=== PATIENT | male | born 1935 | race Caucasian/White ===

== ENCOUNTER 2016-10-09 01:28 | Observation (INO) | payer MEDICARE, MEDICAID ==
[2016-10-09] MEDS ORDERED: Albuterol/Ipratropium 3.0-0.5 MG/3 ML Neb Soln NEB ONE (02:01)
--- NOTE | 2016-10-09 02:24 | EDM.PDOC ---
ED HISTORY OF PRESENT ILLNESS - General Chief Complaint: Respiratory Problem Stated Complaint: COUGH, WHEEZING Time Seen by Provider: 10/09/16 01:28 Source: Reports: Patient, Family History Limitations: Reports: Respiratory distress - History of Present Illness INITIAL COMMENTS - FREE TEXT/NARRATIVE: 81 years old w m with h/o COPD came to the ed with his family to the ed due to worsening of SOB. Pt's pulse ox was 89 on arrival. Pt denied h/o CHF, no chest pain, zno H/O PE. He did smoke in the past. No dizziness no lightheadedness. He denied other acute medical issues. His SOB got worse in the 2-3 days. Symptom Onset Date: 10/06/16 Symptom Onset Time: 07:00 Timing/Duration: Reports: Day(s):, Getting worse Severity: moderate Location, General: Reports: chest Quality: Reports: Same as previous episode - Related Data Allergies/ADRs: Allergies Allergy/AdvReac Type Severity Reaction Status Date / Time aspirin Allergy Rash Verified 10/09/16 02:17 fexofenadine Allergy Cannot Verified 10/09/16 02:17 Remember niacin Allergy Cannot Verified 10/09/16 02:17 Remember polyethylene glycol Allergy Nausea and Verified 10/09/16 02:17 [From Golytely] Vomiting polyethylene glycol 3350 Allergy Nausea and Verified 10/09/16 02:17 [From Golytely] Vomiting potassium chloride Allergy Nausea and Verified 10/09/16 02:17 [From Golytely] Vomiting simvastatin Allergy Cannot Verified 10/09/16 02:17 Remember sodium [From Golytely] Allergy Nausea and Verified 10/09/16 02:17 Vomiting sodium bicarbonate Allergy Nausea and Verified 10/09/16 02:17 [From Golytely] Vomiting sodium chloride Allergy Nausea and Verified 10/09/16 02:17 [From Golytely] Vomiting sodium sulfate Allergy Nausea and Verified 10/09/16 02:17 [From Golytely] Vomiting Home Meds: Home Meds Acetaminophen [Tylenol Arthritis Pain] 650 mg PO Q6H PRN 07/26/13 [History] Albuterol Sulfate [Albuterol Sulfate HFA] 18 gm IH Q6H PRN 07/26/13 [History] Flunisolide [Nasalide Nasal [place]] 2 spray FLORES BID 07/26/13 [History] Lisinopril [Prinivil] 40 mg PO DAILY 07/26/13 [History] Metoprolol Succinate [Toprol XL 100mg] 100 mg PO DAILY 07/26/13 [History] Multivitamins [Tab-A-Noelle] 1 each PO DAILY 07/26/13 [History] Omeprazole 20 mg PO DAILY 07/26/13 [History] Potassium Chloride [Potassium Chloride Solution] 20 meq PO DAILY 07/26/13 [ History] Rosuvastatin [Crestor] 20 mg PO BEDTIME 07/26/13 [History] Tamsulosin [Tamsulosin 24 Hr] 0.4 mg PO DAILY 07/26/13 [History] Warfarin [Coumadin] 2 mg PO ONETIME 11/16/15 [History] Past Medical History - Past Health History Medical/Surgical History: Denies Medical/Surgical History HEENT History: Reports: Impaired vision Cardiovascular History: Reports: High cholesterol, Hypertension Other Cardiovascular History: denies medical hx but is on metropol,lisinopril Respiratory History: Reports: Asthma Gastrointestinal History: Reports: GERD Social & Family History - Tobacco Use Smoking Status *Q: Never Smoker - Alcohol Use Days Per Week of Alcohol Use: 1 Number of Drinks Per Day: 1 Total Drinks Per Week: 1 - Recreational Drug Use Recreational Drug Use: No - Living Situation & Occupation Occupation: retired ED ROS GENERAL - Review of Systems Review Of Systems: See Below Constitutional: Reports: no symptoms HEENT: Reports: No symptoms Respiratory: Reports: Shortness of Breath Cardiovascular: Reports: No symptoms Endocrine: Reports: no symptoms GI/Abdominal: Reports: No symptoms : Reports: no symptoms Musculoskeletal: Reports: no symptoms Skin: Reports: no symptoms Neurological: Reports: No Symptoms Psychiatric: Reports: No symptoms Hematologic/Lymphatic: Reports: no symptoms ED EXAM, GENERAL - Physical Exam Exam: See Below Exam Limited By: Respiratory distress General Appearance: alert, WD/WN, moderate distress Eye Exam: bilateral eye: normal inspection Ears: normal external exam Ear Exam: bilateral ear: auricle normal Nose: normal inspection, normal mucosa, no blood Throat/Mouth: Normal inspection, Normal lips, Normal gums Head: atraumatic, normocephalic Neck: normal inspection, supple, non-tender, full range of motion Respiratory/Chest: respiratory distress, decreased breath sounds (left lung), wheezing Cardiovascular: no edema, no gallop, no JVD, irregularly irregular Peripheral Pulses: 1+: femoral (L), femoral (R) GI/Abdominal: normal bowel sounds, soft, non tender, no organomegaly, no distention, no abnormal bruit (Male) Exam: Deferred Rectal (Males) Exam: Deferred Back Exam: normal inspection, full range of motion Extremities: normal inspection, normal range of motion, non-tender, no pedal edema Neurological: alert, oriented, CN II-XII intact, normal cognition, no motor/ sensory deficits Psychiatric: normal affect, normal mood Skin Exam: Warm, Dry, Intact, Normal color, No rash Lymphatic: no adenopathy Course - Vital Signs Text/Narrative:: 81 years old w m with h/o COPD came to the ed with his family to the ed due to worsening of SOB. Pt's pulse ox was 89 on arrival. Pt denied h/o CHF, no chest pain, no H/O PE. He did smoke in the past. No dizziness no lightheadedness. He denied other acute medical issues. His SOB got worse in the 2-3 days. PE: WNWD WM in resp distress, Exp wheezes, dec BS left lung CXR: Left pleural effusion,CHF, COPD Labs: INR 3.4 (on coumadin) Impression: COPD exacerbation, Tx: [place], Solumedrol Reexam: Improved some Plan: Admit for obs Last Recorded V/S: Last Vital Signs Temp 37.2 C 10/09/16 02:28 Pulse 91 10/09/16 03:23 Resp 22 H 10/09/16 03:23 BP 132/84 10/09/16 03:23 Pulse Ox 91 L 10/09/16 03:23 - Orders/Labs/Meds Orders: Active Orders 24 hr Category Date Time Status Ambulate [RC] ASDIRECTED Care 10/09/16 03:14 Active RT Aerosol Therapy [RC] ASDIRECTED Care 10/09/16 02:01 Active Chest 2V [CR] Stat Exams 10/09/16 01:59 Taken Sodium Chloride 0.9% [Saline Flush] Med 10/09/16 02:34 Active 10 ml FLUSH ASDIRECTED PRN Saline Lock Insert [OM.PC] Routine Oth 10/09/16 02:34 Ordered Medication Orders Albuterol (Proventil Neb Soln) 2.5 mg NEB Q4H ELISE Methylprednisolone Sodium Succinate (Solu-Medrol) 125 mg IVPUSH Q8H ELISE Ondansetron HCl (Zofran) 4 mg IV Q4H PRN PRN Reason: Nausea/Vomiting Sodium Chloride (Saline Flush) 10 ml FLUSH ASDIRECTED PRN PRN Reason: Keep Vein Open Last Admin: 10/09/16 02:48 Dose: 10 ml Admin: 10/09/16 02:42 Dose: 10 ml Labs: Laboratory Tests 10/09/16 10/09/16 10/09/16 Range/Units 02:10 02:10 02:10 WBC 8.8 (4.5-12.0) X10-3/uL RBC 4.81 (4.30-5.75) x10(6)uL Hgb 14.6 (11.5-15.5) g/dL Hct 43.9 (30.0-51.3) % MCV 91.3 (80-96) fL MCH 30.3 (27.7-33.6) pg MCHC 33.2 (32.2-35.4) g/dL RDW 12.6 (11.5-15.5) % Plt Count 188 (125-369) X10(3)uL MPV 9.8 (7.4-10.4) fL Neut % (Auto) 54.4 (46-82) % Lymph % (Auto) 26.5 (13-37) % [place] % (Auto) 11.7 (4-12) % Eos % (Auto) 7 H (1.0-5.0) % Baso % (Auto) 1 (0-2) % Neut # (Auto) 4.8 (1.6-8.3) # Lymph # (Auto) 2.3 (0.6-5.0) # [place] # (Auto) 1.0 (0.0-1.3) # Eos # (Auto) 0.6 (0.0-0.8) # Baso # (Auto) 0.1 (0.0-0.2) # PT 35.2 H* (8.7-11.1) INR 3.40 H (0.89-1.13) Sodium 139 (135-145) mmol/L Potassium 4.2 (3.5-5.3) mmol/L Chloride 103 (100-110) mmol/L Carbon Dioxide 28 (23-29) mmol/L BUN 14 (8-23) mg/dL Creatinine 0.9 (0.6-1.3) mg/dL Est Cr Clr Drug Dosing 66.24 mL/min Estimated GFR (MDRD) > 60 (>60) BUN/Creatinine Ratio 15.6 (9-20) Glucose 145 H (80-116) mg/dL Calcium 8.5 L (8.6-10.2) mg/dL Troponin I (0.02-0.06) NG/ML B-Natriuretic Peptide (0-100) pg/mL 10/09/16 10/09/16 Range/Units 02:10 02:10 WBC (4.5-12.0) X10-3/uL RBC (4.30-5.75) x10(6)uL Hgb (11.5-15.5) g/dL Hct (30.0-51.3) % MCV (80-96) fL MCH (27.7-33.6) pg MCHC (32.2-35.4) g/dL RDW (11.5-15.5) % Plt Count (125-369) X10(3)uL MPV (7.4-10.4) fL Neut % (Auto) (46-82) % Lymph % (Auto) (13-37) % [place] % (Auto) (4-12) % Eos % (Auto) (1.0-5.0) % Baso % (Auto) (0-2) % Neut # (Auto) (1.6-8.3) # Lymph # (Auto) (0.6-5.0) # [place] # (Auto) (0.0-1.3) # Eos # (Auto) (0.0-0.8) # Baso # (Auto) (0.0-0.2) # PT (8.7-11.1) INR (0.89-1.13) Sodium (135-145) mmol/L Potassium (3.5-5.3) mmol/L Chloride (100-110) mmol/L Carbon Dioxide (23-29) mmol/L BUN (8-23) mg/dL Creatinine (0.6-1.3) mg/dL Est Cr Clr Drug Dosing mL/min Estimated GFR (MDRD) (>60) BUN/Creatinine Ratio (9-20) Glucose (80-116) mg/dL Calcium (8.6-10.2) mg/dL Troponin I < 0.01 L (0.02-0.06) NG/ML B-Natriuretic Peptide 5 (0-100) pg/mL Meds: Medications Generic Name Dose Route Start Last Admin Trade Name Freq PRN Reason Stop Dose Admin Albuterol 2.5 mg 10/09/16 03:45 Proventil Neb Soln NEB Q4H ELISE Methylprednisolone Sodium Succinate 125 mg 10/09/16 03:45 Solu-Medrol IVPUSH Q8H ELISE Ondansetron HCl 4 mg 10/09/16 03:31 Zofran IV Q4H PRN Nausea/Vomiting Sodium Chloride 10 ml 10/09/16 02:34 10/09/16 02:48 Saline Flush FLUSH 10 ml ASDIRECTED PRN Administration Keep Vein Open Discontinued Medications Generic Name Dose Route Start Last Admin Trade Name Freq PRN Reason Stop Dose Admin Albuterol/Ipratropium 3 ml 10/09/16 02:01 10/09/16 02:11 Duoneb 3.0-0.5 Mg/3 Ml NEB 10/09/16 02:02 3 ml ONETIME ONE Administration Methylprednisolone Sodium Succinate 125 mg 10/09/16 02:26 10/09/16 02:46 Solu-Medrol IVPUSH 10/09/16 02:27 125 mg ONETIME ONE Administration Departure - Departure Time of Disposition: 03:38 Disposition: Refer to Observation Condition: fair Clinical Impression: COPD (chronic obstructive pulmonary disease) Qualifiers: COPD type: COPD with acute exacerbation Qualified Code(s): J44.1 - Chronic obstructive pulmonary disease with (acute) exacerbation - My Orders Last 24 Hours: My Active Orders 10/09/16 01:59 Chest 2V [CR] Stat 10/09/16 02:01 RT Aerosol Therapy [RC] ASDIRECTED 10/09/16 02:34 Sodium Chloride 0.9% [Saline Flush] 10 ml FLUSH ASDIRECTED PRN Saline Lock Insert [OM.PC] Routine 10/09/16 03:14 Ambulate [RC] ASDIRECTED - Assessment/Plan Last 24 Hours: My Active Orders 10/09/16 01:59 Chest 2V [CR] Stat 10/09/16 02:01 RT Aerosol Therapy [RC] ASDIRECTED 10/09/16 02:34 Sodium Chloride 0.9% [Saline Flush] 10 ml FLUSH ASDIRECTED PRN Saline Lock Insert [OM.PC] Routine 10/09/16 03:14 Ambulate [RC] ASDIRECTED
[2016-10-09] MEDS ORDERED: methylPREDNISolone Sodium Succinate 125 MG/2 ML SDV IVPUSH ONE (02:26)
[2016-10-09] MEDS: Sodium Chloride 0.9% 10 ML Syringe FLUSH PRN ×2 (02:42→02:48)
[2016-10-09] MEDS ORDERED: Ondansetron 4 MG/2 ML SDV IV PRN (03:31)
[2016-10-09] MEDS ORDERED: methylPREDNISolone Sodium Succinate 125 MG/2 ML SDV IVPUSH SCH (03:45)
[2016-10-09] MEDS: Albuterol 0.083% 2.5 MG/3 ML Neb Soln NEB SCH ×4 (03:52→15:15)
[2016-10-09] MEDS ORDERED: Loratadine 10 MG Tab PO PRN (10:46)
[2016-10-09] MEDS ORDERED: Acetaminophen 650 MG Tab.ER PO PRN (10:46)
[2016-10-09] MEDS ORDERED: Loperamide 2 MG Cap *PTOM PO PRN (10:46)
[2016-10-09] MEDS ORDERED: Metoprolol Succinate 100 MG Tab.ER PO SCH (11:00)
[2016-10-09] MEDS ORDERED: Potassium Chloride 10 MEQ Tab.ER PO SCH (11:00)
[2016-10-09] MEDS ORDERED: LISINOPRIL 10 MG PO SCH (11:00)
[2016-10-09] MEDS ORDERED: Albuterol 0.083% 2.5 MG/3 ML Neb Soln NEB PRN (16:06)
[2016-10-09] MEDS ORDERED: METOPROLOL SUCCINATE 50 MG PO ONE (16:09)
--- NOTE | 2016-10-09 16:12 | PCM.HP ---
H&P History of Present Illness - General Admit Problem/Dx: Admission Diagnosis/Problem Admission Diagnosis/Problem COPD, Moderate chronic obstructive pulmonary disease Source of Information: Patient - History of Present Illness Initial Comments - Free Text/Narative: 81 years old male with h/o COPD was seen in the ed with his family due to worsening of SOB. Pt's pulse ox was 89 on arrival. Pt denied h/o CHF, no chest pain, no H/O PE. He did smoke in the past. No dizziness no lightheadedness. He denied other acute medical issues. His SOB got worse in the 2-3 days. getting over the same thing. no hx of home oxygen use. otherwise no fevers or chills. appetite has been down. no diarrhea, melena or hematuria. no nausea or vomiting. coughing but now sputum. no cp or pressure. no hemoptosis. no headache , neckpain, night sweats, travel, joint swelling or redness, abd pain, flank pain, wound or rash. Denies Pain Score (Numeric/FACES): 0 - Related Data Allergies/Adverse Reactions: Allergies Allergy/AdvReac Type Severity Reaction Status Date / Time aspirin Allergy Swelling Verified 10/09/16 04:04 fexofenadine Allergy Confusion Verified 10/09/16 04:04 niacin Allergy Rash Verified 10/09/16 04:04 polyethylene glycol Allergy Nausea and Verified 10/09/16 02:17 [From Golytely] Vomiting polyethylene glycol 3350 Allergy Nausea and Verified 10/09/16 02:17 [From Golytely] Vomiting potassium chloride Allergy Nausea and Verified 10/09/16 02:17 [From Golytely] Vomiting simvastatin Allergy Joint Pain Verified 10/09/16 04:04 sodium [From Golytely] Allergy Nausea and Verified 10/09/16 02:17 Vomiting sodium bicarbonate Allergy Nausea and Verified 10/09/16 02:17 [From Golytely] Vomiting sodium chloride Allergy Nausea and Verified 10/09/16 02:17 [From Golytely] Vomiting sodium sulfate Allergy Nausea and Verified 10/09/16 02:17 [From Golytely] Vomiting Home Medications: Home Meds Acetaminophen [Tylenol Arthritis Pain] 325 mg PO Q6H PRN 07/26/13 [History] Rosuvastatin [Crestor] 20 mg PO BEDTIME 07/26/13 [History] Tamsulosin [Flomax] 0.4 mg PO DAILY 07/26/13 [History] Warfarin [Coumadin] 4 mg PO MOWEFR 11/16/15 [History] Albuterol [Ventolin HFA] 2 puff INH Q6HR PRN 10/09/16 [History] Diphenhydramine Hcl [IJD: diphenhydrAMINE HCl] 25 mg PO DAILY 10/09/16 [History] Loperamide [Imodium] 2 mg PO Q4H PRN 10/09/16 [History] Potassium Chloride [Klor-Con 10] 20 meq PO BID 10/09/16 [History] Ranitidine HCl [Ranitidine] 150 mg PO BID 10/09/16 [History] Warfarin [Coumadin] 2 mg PO SUTUTHSA 10/09/16 [History] Albuterol [IJD: Albuterol] 2.5 mg NEB Q4H PRN #0 nebule 10/10/16 [Rx] Albuterol/Ipratropium [DuoNeb 3.0-0.5 MG/3 ML] 3 ml NEB TIDRT neb 10/10/16 [Rx] LORazepam [Ativan] 0.5 mg PO Q8H PRN #0 tablet 10/10/16 [Rx] Lisinopril [Prinivil] 5 mg PO DAILY tablet 10/10/16 [Rx] Metoprolol Succinate [Toprol XL] 25 mg PO DAILY tab.er 10/10/16 [Rx] Multivitamins [Tab-A-Noelle] 1 tab PO DAILY #0 tablet 10/10/16 [Rx] Prednisone [IJD: predniSONE] 40 mg PO BID tablet 10/10/16 [Rx] Past Medical History - Past Health History Medical/Surgical History: Denies Medical/Surgical History HEENT History: Reports: Impaired Vision Cardiovascular History: Reports: High Cholesterol, Hypertension Other Cardiovascular History: denies medical hx but is on metropol,lisinopril Respiratory History: Reports: Asthma Gastrointestinal History: Reports: GERD Social & Family History - Tobacco Use Smoking Status *Q: Former Smoker Years of Tobacco use: 9 Packs/Tins Daily: 1 Used Tobacco, but Quit: Yes Month Tobacco Last Used: JUL. Second Hand Smoke Exposure: No - Caffeine Use Caffeine Use: Reports: Soda Other Caffeine Use: COKE - Alcohol Use Days Per Week of Alcohol Use: 1 Number of Drinks Per Day: 0 Total Drinks Per Week: 0 Date of Last Drink: 07/03/00 Time of Last Drink: 21:00 - Recreational Drug Use Recreational Drug Use: No - Living Situation & Occupation Living situation: Reports: Occupation: Retired H&P Review of Systems - Review of Systems: Review Of Systems: ROS reveals no pertinent complaints other than HPI. Exam - Exam Exam: See Below - Vital Signs Vital Signs: Last Vital Signs Temp 98.5 F 10/09/16 12:00 Pulse 103 H 10/09/16 15:17 Resp 18 10/09/16 12:00 BP 120/70 10/09/16 12:00 Pulse Ox 90 L 10/09/16 15:17 Weight: 90.401 kg - Exam Quality Assessment: Supplemental Oxygen General: Alert, Oriented, Cooperative HEENT: Conjunctiva Clear, Posterior Pharynx Clear. No: Scleral Icterus Neck: Supple, Trachea Midline. No: Lymphadenopathy Lungs: Normal Respiratory Effort, Crackles, Rales, Wheezing (throughout) Cardiovascular: Regular Rhythm, Tachycardia Abdomen: Normal Bowel Sounds, Soft Back Exam: Normal Inspection Extremities: Normal Inspection Skin: No: Rash, [place] Neurological: Strength Equal Bilateral, Normal Speech Psychiatric: Normal Affect, Normal Mood - Patient Data Result Diagrams: 10/09/16 02:10 10/10/16 06:40 Imaging Impressions last 24 hrs: cxr with diffuse scattered pneumonitis and air bronchograms. no masses or effusion. not able to appreciate any focal consolidation. radiology review pending. *Q Meaningful Use (ADM) - VTE *Q VTE Criteria *Q: - Stroke *Q Stroke Criteria *Q: - AMI *Q AMI Criteria *Q: - Problem List (1) Acute exacerbation of COPD with asthma SNOMED Code(s): 230716272 ICD Code: J44.1 - CHRONIC OBSTRUCTIVE PULMONARY DISEASE W (ACUTE) EXACERBATION; J45.901 - UNSPECIFIED ASTHMA WITH (ACUTE) EXACERBATION Status: Acute (2) Respiratory distress, acute SNOMED Code(s): 521791290 ICD Code: R06.00 - DYSPNEA, UNSPECIFIED Status: Acute (3) COPD, Moderate chronic obstructive pulmonary disease SNOMED Code(s): 067858286 ICD Code: J44.9 - CHRONIC OBSTRUCTIVE PULMONARY DISEASE, UNSPECIFIED Status : Chronic Priority: High Problem List Initiated/Reviewed/Updated: Yes Orders Last 24hrs: Active Orders 24 hr Category Date Time Status Patient Status [ADT] Routine ADT 10/09/16 03:31 Active Oxygen Therapy [RC] PRN Care 10/09/16 03:31 Active RT Aerosol Therapy [RC] ASDIRECTED Care 10/09/16 16:05 Active Up With Assistance [RC] ASDIRECTED Care 10/09/16 03:31 Active Vital Signs [RC] 04,08,12,16,20,00 Care 10/09/16 03:31 Active OT Evaluation and Treatment [CONS] Routine Cons 10/09/16 10:55 Active PT Evaluation and Treatment [CONS] Routine Cons 10/09/16 10:55 Active 2 Gram Sodium Diet [DIET] Diet 10/09/16 Breakfast Active BASIC METABOLIC PANEL,BMP [CHEM] AM Lab 10/10/16 05:11 Ordered INR,PT,PROTHROMBIN TIME [COAG] DAILY Lab 10/10/16 05:15 Ordered INR,PT,PROTHROMBIN TIME [COAG] DAILY Lab 10/11/16 05:15 Ordered INR,PT,PROTHROMBIN TIME [COAG] DAILY Lab 10/12/16 05:15 Ordered INR,PT,PROTHROMBIN TIME [COAG] DAILY Lab 10/13/16 05:15 Ordered Acetaminophen [Tylenol Arthritis Pain] Med 10/09/16 10:46 Active 325 mg PO Q6H PRN Albuterol [Proventil Neb Soln] Med 10/09/16 16:06 Ordered 2.5 mg NEB Q4H PRN Albuterol/Ipratropium [DuoNeb 3.0-0.5 MG/3 ML] Med 10/09/16 21:00 Ordered 3 ml NEB TID Flunisolide [Nasalide Nasal [place]] Med 10/09/16 11:00 Ordered DOSE ml FLORES BID Lisinopril [Prinivil] Med 10/10/16 09:00 Active 5 mg PO DAILY Loperamide [Imodium] Med 10/09/16 10:46 Active 2 mg PO Q4H PRN Metoprolol Succinate [Toprol XL] Med 10/10/16 09:00 Ordered 25 mg PO DAILY Metoprolol Succinate [Toprol XL] Med 10/09/16 16:09 Once 25 mg PO ONETIME ONE Multivitamins [Tab-A-Noelle] Med 10/10/16 09:00 Ordered DOSE tab PO DAILY Ondansetron [Zofran] Med 10/09/16 03:31 Active 4 mg IV Q4H PRN Potassium Chloride [Klor-Con M20] Med 10/10/16 09:00 Ordered 20 meq PO DAILY Ranitidine HCl [Ranitidine] Med 10/09/16 11:00 Active 150 mg PO BID Rosuvastatin [Crestor] Med 10/09/16 21:00 Ordered 20 mg PO BEDTIME Tamsulosin [Flomax] Med 10/09/16 11:00 Active 0.4 mg PO DAILY Warfarin [Coumadin] Med 10/11/16 16:00 Active 2 mg PO SuTuThSa@1600 Warfarin [Coumadin] Med 10/10/16 16:00 Active 4 mg PO MoWeFr@1600 diphenhydrAMINE [Benadryl] Med 10/10/16 09:00 Ordered 25 mg PO DAILY predniSONE Med 10/09/16 21:00 Ordered 40 mg PO BID Resuscitation Status Routine Resus Stat 10/09/16 03:31 Ordered Medication Orders Acetaminophen (Tylenol Arthritis Pain) 325 mg PO Q6H PRN PRN Reason: Pain Albuterol (Proventil Neb Soln) 2.5 mg NEB Q4H PRN PRN Reason: wheezing, cough, sob Albuterol/Ipratropium (Duoneb 3.0-0.5 Mg/3 Ml) 3 ml NEB TID ELISE Diphenhydramine HCl (Benadryl) 25 mg PO DAILY ELISE Flunisolide (Nasalide Nasal [place]) ml FLORES BID ELISE Lisinopril (Prinivil) 5 mg PO DAILY ELISE Loperamide HCl (Imodium) 2 mg PO Q4H PRN PRN Reason: Diarrhea Metoprolol Succinate (Toprol Xl) 25 mg PO DAILY ELISE Metoprolol Succinate (Toprol Xl) 25 mg PO ONETIME ONE Stop: 10/09/16 16:10 Multivitamins/Minerals/Vitamin C (Tab-A-Noelle) tab PO DAILY ELISE Ranitidine Hcl [ Ranitidine] 150mg Own Med 150 mg PO BID ELISE Non-Formulary Medication (Rosuvastatin [Crestor]) 20 mg PO BEDTIME ELISE Ondansetron HCl (Zofran) 4 mg IV Q4H PRN PRN Reason: Nausea/Vomiting Potassium Chloride (Klor-Con M20) 20 meq PO DAILY [facility] Prednisone (Prednisone) 40 mg PO BID [facility] Sodium Chloride (Saline Flush) 10 ml FLUSH ASDIRECTED PRN PRN Reason: Keep Vein Open Last Admin: 10/09/16 02:48 Dose: 10 ml Admin: 10/09/16 02:42 Dose: 10 ml Tamsulosin HCl (Flomax) 0.4 mg PO DAILY [facility] Warfarin Sodium (Coumadin) 4 mg PO MoWeFr@1600 [facility] Warfarin Sodium (Coumadin) 2 mg PO SuTuThSa@1600 [facility] Assessment/Plan Comment:: continue resp cares and IS. keep sats above 92%. mobilize. switch to oral pred. add beta makenzie for tachy. monitor fluid status. intake/output has been good. labs in AM.
[2016-10-09] MEDS: RANITIDINE HCL 150 MG PO SCH ×2 (17:21→20:32)
[2016-10-09] MEDS: Tamsulosin 0.4 MG Cap.ER ** OWN MED PO SCH (17:21)
[2016-10-09] MEDS ORDERED: LORazepam 0.5 MG Tab PO PRN (19:00)
[2016-10-09] MEDS ORDERED: Morphine 2 MG/ML Syringe IVPUSH PRN (19:00)
[2016-10-09] MEDS: predniSONE 20 MG Tab PO SCH (20:31)
[2016-10-09] MEDS ORDERED: Non-Formulary Medication 1 Each (Rosuvastatin [Crestor] 20 MG) PO SCH (21:00)
[2016-10-09] MEDS ORDERED: Albuterol/Ipratropium 3.0-0.5 MG/3 ML Neb Soln NEB SCH (21:00)
[2016-10-10] MEDS: Albuterol/Ipratropium 3.0-0.5 MG/3 ML Neb Soln NEB SCH ×2 (07:20→15:05)
[2016-10-10] MEDS: predniSONE 20 MG Tab PO SCH (08:36)
[2016-10-10] MEDS ORDERED: DIPHENHYDRAMINE 25 MG PO SCH (09:00)
[2016-10-10] MEDS ORDERED: METOPROLOL SUCCINATE 50 MG PO SCH (09:00)
[2016-10-10] MEDS ORDERED: LISINOPRIL 10 MG PO SCH (09:00)
[2016-10-10] MEDS ORDERED: Potassium Chloride 10 MEQ Tab.ER ** OWN MED PO SCH (09:00)
[2016-10-10] MEDS ORDERED: Multivitamin Tab PO SCH (09:00)
[2016-10-10] MEDS: Tamsulosin 0.4 MG Cap.ER ** OWN MED PO SCH (09:12)
[2016-10-10] MEDS: RANITIDINE HCL 150 MG PO SCH (09:14)
--- NOTE | 2016-10-10 15:26 | CR ---
INDICATION: Short of breath. CHEST: PA and lateral views of the chest 10/09/2016 were compared with 2013, and revealed the heart to be enlarged with interstitial changes raising question of unusual pneumonia, possibly even disseminated TB, although CHF and pulmonary edema could be present. Also, there is relatively increased density at the left lung base compatible with atelectasis, consolidating pneumonia, and a moderate sized pleural effusion. Lateral pleural thickening on the right and left is noted and was present previously, although appearing slightly more prominent on the left than previously. Diaphragm leaves are slightly flattened, and with prominent AP diameter and hyperaeration, suggest the possibility of COPD. Degenerative changes are noted in the spine and appear progressive to a mild degree compared with 2013. IMPRESSION: 1. Micronodular infiltration suggested which could be on the basis of disseminated TB and should be correlated clinically. 2. Question the possibility of CHF and interstitial lung edema. 3. Consolidating pneumonia and/or effusion and/or atelectasis at the left lung base - lower lobe. 4. Exacerbated or progressive COPD. 5. Possible osteoporosis. 6. DJD spine. Report was called to Dr. Little this pm, 10/10/2016. MTDD
[2016-10-10] MEDS ORDERED: Iopamidol 755 Mg/ML 100 ML Bottle IV ONE (15:45)
[2016-10-10] MEDS ORDERED: WARFARIN 2 MG PO SCH (16:00)
[2016-10-10 16:39] VITALS: BP 125/76
--- NOTE | 2016-10-10 17:05 | PCM.DCSUM1 ---
Discharge Summary - Discharge Data Discharge Date: 10/10/16 Discharge Disposition: DC/Tfer to Acute Hospital 02 Condition: Good - Discharge Diagnosis/Problem(s) (1) Acute exacerbation of COPD with asthma SNOMED Code(s): 544856651 ICD Code: J44.1 - CHRONIC OBSTRUCTIVE PULMONARY DISEASE W (ACUTE) EXACERBATION; J45.901 - UNSPECIFIED ASTHMA WITH (ACUTE) EXACERBATION Status: Acute Current Visit: Yes (2) Abnormal chest x-ray with multiple lung nodules SNOMED Code(s): 185722650, 178234501 ICD Code: R91.8 - OTHER NONSPECIFIC ABNORMAL FINDING OF LUNG FIELD Status: Acute Current Visit: Yes (3) Respiratory distress, acute SNOMED Code(s): 663967651 ICD Code: R06.00 - DYSPNEA, UNSPECIFIED Status: Acute Current Visit: Yes - Patient Summary/Data Consults: Consultations 10/09/16 10:55 OT Evaluation and Treatment [CONS] Routine Please Evaluate and Treat. OT Reason for Consult: Discharge Planning This query below is only for informational purposes and is not editable. Admission Diagnosis/Problem: COPD, Moderate chronic obstructive pulmonary disease PT Evaluation and Treatment [CONS] Routine Please Evaluate and Treat. PT Reason for Consult: Strengthening This query below is only for informational purposes and is not editable. Admission Diagnosis/Problem: COPD, Moderate chronic obstructive pulmonary disease [facility] Hospitalist Team regarding transfer for R/o active TB-Unable to accept due to no open negative pressure rooms. [facility] Hospitalist/Infectious Disease Team- R/O active TB. - Accepted. Hospital Course: Mr. Henderson is an 81 year pleasant gentleman with hx of copd/asthma, numerous allergies admitted from ER due to worsening wheezing and sob actively being treated outpt for bronchitis in the setting of asthma with doxycycline for 1 day prior to admission. he and his live at home and he stated that they had both been ill the last week without known exposures or travel. she is improving but he was not. on admission was treated with SVNs and solumedrol IV for increased resp, active wheezing and sob. cxr read by me suggestive for viral pneumonitis and copd with possible increase pulmonary congestion. denied fevers, night sweats, weight loss, or myalgias. today, radiology read of same film strongly suggest primary diagnosis disseminated TB possible. Clinically, pt signs labs and improvement on current therapies not consistent with active TB, however, unable to rule out at this facility without ability to induce sputum for cultures or rapid assays. Pt was placed in negative pressure room and TB precautions instituted. Consultation with [facility] hospitalist team, and they are unable to accept due to no available negative pressure rooms. Consult with [facility] Team will accept after discussion with infectious disease and hospitalist. Mr. Henderson will be transfered by ground ambulance in stable condition under respiratory percautions to [facility] in order to rule out active TB and treated accordingly. I appreciate Dr. Jorge MD in accepting this pleasant gentleman. Mr. Henderson's daughter was also informed and they both are agreeable to the above plan of care. Reassurance was given to both and all questions were addressed. - Discharge Plan Home Medications: Home Meds Acetaminophen [Tylenol Arthritis Pain] 325 mg PO Q6H PRN 07/26/13 [History] Rosuvastatin [Crestor] 20 mg PO BEDTIME 07/26/13 [History] Tamsulosin [Flomax] 0.4 mg PO DAILY 07/26/13 [History] Warfarin [Coumadin] 4 mg PO MOWEFR 11/16/15 [History] Albuterol [Ventolin HFA] 2 puff INH Q6HR PRN 10/09/16 [History] Diphenhydramine Hcl [IJD: diphenhydrAMINE HCl] 25 mg PO DAILY 10/09/16 [History] Loperamide [Imodium] 2 mg PO Q4H PRN 10/09/16 [History] Potassium Chloride [Klor-Con 10] 20 meq PO BID 10/09/16 [History] Ranitidine HCl [Ranitidine] 150 mg PO BID 10/09/16 [History] Warfarin [Coumadin] 2 mg PO SUTUTHSA 10/09/16 [History] Albuterol [IJD: Albuterol] 2.5 mg NEB Q4H PRN #0 nebule 10/10/16 [Rx] Albuterol/Ipratropium [DuoNeb 3.0-0.5 MG/3 ML] 3 ml NEB TIDRT neb 10/10/16 [Rx] LORazepam [Ativan] 0.5 mg PO Q8H PRN #0 tablet 10/10/16 [Rx] Lisinopril [Prinivil] 5 mg PO DAILY tablet 10/10/16 [Rx] Metoprolol Succinate [Toprol XL] 25 mg PO DAILY tab.er 10/10/16 [Rx] Multivitamins [Tab-A-Noelle] 1 tab PO DAILY #0 tablet 10/10/16 [Rx] Prednisone [IJD: predniSONE] 40 mg PO BID tablet 10/10/16 [Rx] Patient Handouts: Deep Vein Thrombosis Referrals: Duane Alegre MD [Primary Care Provider] - - Discharge Summary/Plan Comment DC Time >30 min.: Yes - General Info Functional Status: Reports: tolerating diet, ambulating, urinating, incentive spirometry. Denies: new symptoms - Review of Systems General: Denies: Fever HEENT: Reports: no symptoms Pulmonary: Reports: shortness of breath, wheezing. Denies: sputum, hemoptysis Cardiovascular: Reports: No Symptoms Gastrointestinal: Reports: No symptoms Genitourinary: Reports: no symptoms Musculoskeletal: Reports: no symptoms Skin: Reports: no symptoms Neurological: Reports: No Symptoms Psychiatric: Reports: no symptoms - Patient Data Vitals - Most Recent: Vital Signs (72 hours) 10/09/16 10/09/16 10/09/16 02:28 03:23 03:31 Temperature [ 98.9 F 98.1 F Oral] Pulse, Peripheral Pulse, 91 Peripheral [ Left Brachial] Pulse, 93 91 Peripheral [ Left Pulse Oximetry] Respiratory 20 22 H 20 Rate Blood Pressure Blood Pressure 164/86 H [Left Upper Arm ] Blood Pressure 150/65 H 132/84 [Right Upper Arm] O2 Sat by Pulse 93 L 91 L 91 L Oximetry O2 Sat by Pulse 91 L Oximetry [ Nasal Cannula] O2 Sat by Pulse Oximetry [Room Air] 10/09/16 10/09/16 10/09/16 08:00 08:07 12:00 Temperature [ 98.4 F 98.5 F Oral] Pulse, Peripheral Pulse, 88 88 Peripheral [ Left Brachial] Pulse, 90 Peripheral [ Left Pulse Oximetry] Respiratory 16 18 Rate Blood Pressure Blood Pressure 127/72 120/70 [Left Upper Arm ] Blood Pressure [Right Upper Arm] O2 Sat by Pulse 92 L 93 L Oximetry O2 Sat by Pulse Oximetry [ Nasal Cannula] O2 Sat by Pulse Oximetry [Room Air] 10/09/16 10/09/16 10/09/16 12:25 15:17 16:00 Temperature [ Oral] Pulse, Peripheral Pulse, Peripheral [ Left Brachial] Pulse, 105 H 103 H 102 H Peripheral [ Left Pulse Oximetry] Respiratory 18 Rate Blood Pressure Blood Pressure [Left Upper Arm ] Blood Pressure 123/75 [Right Upper Arm] O2 Sat by Pulse 91 L Oximetry O2 Sat by Pulse Oximetry [ Nasal Cannula] O2 Sat by Pulse 90 L 90 L Oximetry [Room Air] 10/09/16 10/09/16 10/09/16 18:50 19:25 20:00 Temperature [ Oral] Pulse, Peripheral Pulse, 108 H Peripheral [ Left Brachial] Pulse, 116 H 110 H Peripheral [ Left Pulse Oximetry] Respiratory 20 20 Rate Blood Pressure Blood Pressure 160/92 H [Left Upper Arm ] Blood Pressure 155/86 H [Right Upper Arm] O2 Sat by Pulse 90 L 92 L 94 L Oximetry O2 Sat by Pulse Oximetry [ Nasal Cannula] O2 Sat by Pulse Oximetry [Room Air] 10/09/16 10/10/16 10/10/16 20:30 02:40 03:25 Temperature [ 98.4 F Oral] Pulse, Peripheral Pulse, Peripheral [ Left Brachial] Pulse, 108 H 92 Peripheral [ Left Pulse Oximetry] Respiratory 17 Rate Blood Pressure Blood Pressure 141/83 H [Left Upper Arm ] Blood Pressure [Right Upper Arm] O2 Sat by Pulse 92 L Oximetry O2 Sat by Pulse 92 L 92 L Oximetry [ Nasal Cannula] O2 Sat by Pulse Oximetry [Room Air] 10/10/16 10/10/16 10/10/16 07:20 08:00 09:13 Temperature [ 97.7 F Oral] Pulse, Peripheral Pulse, 104 H Peripheral [ Left Brachial] Pulse, 84 Peripheral [ Left Pulse Oximetry] Respiratory 18 Rate Blood Pressure 139/77 Blood Pressure [Left Upper Arm ] Blood Pressure 139/77 [Right Upper Arm] O2 Sat by Pulse 93 L Oximetry O2 Sat by Pulse Oximetry [ Nasal Cannula] O2 Sat by Pulse 92 L Oximetry [Room Air] 10/10/16 10/10/16 10/10/16 09:14 12:00 15:05 Temperature [ 97.6 F Oral] Pulse, 104 H Peripheral Pulse, 87 Peripheral [ Left Brachial] Pulse, 88 Peripheral [ Left Pulse Oximetry] Respiratory 18 Rate Blood Pressure 139/77 Blood Pressure 130/65 [Left Upper Arm ] Blood Pressure [Right Upper Arm] O2 Sat by Pulse 94 L Oximetry O2 Sat by Pulse Oximetry [ Nasal Cannula] O2 Sat by Pulse 95 Oximetry [Room Air] 10/10/16 16:30 Temperature [ 97.8 F Oral] Pulse, Peripheral Pulse, 91 Peripheral [ Left Brachial] Pulse, Peripheral [ Left Pulse Oximetry] Respiratory 18 Rate Blood Pressure Blood Pressure 125/76 [Left Upper Arm ] Blood Pressure [Right Upper Arm] O2 Sat by Pulse 91 L Oximetry O2 Sat by Pulse Oximetry [ Nasal Cannula] O2 Sat by Pulse Oximetry [Room Air] Weight - Most Recent: 90.401 kg I&O - Last 24 hours: Intake & Output 10/08/16 10/09/16 10/10/16 10/11/16 06:59 06:59 06:59 06:59 Intake Total 640 240 Balance 640 240 Imaging Impressions - Last 24 hrs: CXR pushed to pac at [facility]. Please see report. Lab Results - Last 24 hrs: Laboratory Tests 10/09/16 10/09/16 10/09/16 Range/Units 02:10 02:10 02:10 WBC 8.8 (4.5-12.0) X10-3/uL RBC 4.81 (4.30-5.75) x10(6)uL Hgb 14.6 (11.5-15.5) g/dL Hct 43.9 (30.0-51.3) % MCV 91.3 (80-96) fL MCH 30.3 (27.7-33.6) pg MCHC 33.2 (32.2-35.4) g/dL RDW 12.6 (11.5-15.5) % Plt Count 188 (125-369) X10(3)uL MPV 9.8 (7.4-10.4) fL Neut % (Auto) 54.4 (46-82) % Lymph % (Auto) 26.5 (13-37) % [place] % (Auto) 11.7 (4-12) % Eos % (Auto) 7 H (1.0-5.0) % Baso % (Auto) 1 (0-2) % Neut # (Auto) 4.8 (1.6-8.3) # Lymph # (Auto) 2.3 (0.6-5.0) # [place] # (Auto) 1.0 (0.0-1.3) # Eos # (Auto) 0.6 (0.0-0.8) # Baso # (Auto) 0.1 (0.0-0.2) # PT 35.2 H* (8.7-11.1) INR 3.40 H (0.89-1.13) Sodium 139 (135-145) mmol/L Potassium 4.2 (3.5-5.3) mmol/L Chloride 103 (100-110) mmol/L Carbon Dioxide 28 (23-29) mmol/L BUN 14 (8-23) mg/dL Creatinine 0.9 (0.6-1.3) mg/dL Est Cr Clr Drug Dosing 66.24 mL/min Estimated GFR (MDRD) > 60 (>60) BUN/Creatinine Ratio 15.6 (9-20) Glucose 145 H (80-116) mg/dL Calcium 8.5 L (8.6-10.2) mg/dL Troponin I (0.02-0.06) NG/ML B-Natriuretic Peptide (0-100) pg/mL 10/09/16 10/09/16 10/10/16 Range/Units 02:10 02:10 06:40 WBC (4.5-12.0) X10-3/uL RBC (4.30-5.75) x10(6)uL Hgb (11.5-15.5) g/dL Hct (30.0-51.3) % MCV (80-96) fL MCH (27.7-33.6) pg MCHC (32.2-35.4) g/dL RDW (11.5-15.5) % Plt Count (125-369) X10(3)uL MPV (7.4-10.4) fL Neut % (Auto) (46-82) % Lymph % (Auto) (13-37) % [place] % (Auto) (4-12) % Eos % (Auto) (1.0-5.0) % Baso % (Auto) (0-2) % Neut # (Auto) (1.6-8.3) # Lymph # (Auto) (0.6-5.0) # [place] # (Auto) (0.0-1.3) # Eos # (Auto) (0.0-0.8) # Baso # (Auto) (0.0-0.2) # PT 23.2 H (8.7-11.1) INR 2.26 H (0.89-1.13) Sodium (135-145) mmol/L Potassium (3.5-5.3) mmol/L Chloride (100-110) mmol/L Carbon Dioxide (23-29) mmol/L BUN (8-23) mg/dL Creatinine (0.6-1.3) mg/dL Est Cr Clr Drug Dosing mL/min Estimated GFR (MDRD) (>60) BUN/Creatinine Ratio (9-20) Glucose (80-116) mg/dL Calcium (8.6-10.2) mg/dL Troponin I < 0.01 L (0.02-0.06) NG/ML B-Natriuretic Peptide 5 (0-100) pg/mL 10/10/16 Range/Units 06:40 WBC (4.5-12.0) X10-3/uL RBC (4.30-5.75) x10(6)uL Hgb (11.5-15.5) g/dL Hct (30.0-51.3) % MCV (80-96) fL MCH (27.7-33.6) pg MCHC (32.2-35.4) g/dL RDW (11.5-15.5) % Plt Count (125-369) X10(3)uL MPV (7.4-10.4) fL Neut % (Auto) (46-82) % Lymph % (Auto) (13-37) % [place] % (Auto) (4-12) % Eos % (Auto) (1.0-5.0) % Baso % (Auto) (0-2) % Neut # (Auto) (1.6-8.3) # Lymph # (Auto) (0.6-5.0) # [place] # (Auto) (0.0-1.3) # Eos # (Auto) (0.0-0.8) # Baso # (Auto) (0.0-0.2) # PT (8.7-11.1) INR (0.89-1.13) Sodium 138 (135-145) mmol/L Potassium 4.5 (3.5-5.3) mmol/L Chloride 101 (100-110) mmol/L Carbon Dioxide 26 (23-29) mmol/L BUN 21 (8-23) mg/dL Creatinine 0.9 (0.6-1.3) mg/dL Est Cr Clr Drug Dosing 58.14 mL/min Estimated GFR (MDRD) > 60 (>60) BUN/Creatinine Ratio 23.3 H (9-20) Glucose 175 H (80-116) mg/dL Calcium 9.4 (8.6-10.2) mg/dL Troponin I (0.02-0.06) NG/ML B-Natriuretic Peptide (0-100) pg/mL Med Orders - Current: Current Medications Acetaminophen (Tylenol Arthritis Pain) 325 mg PO Q6H PRN PRN Reason: Pain Albuterol (Proventil Neb Soln) 2.5 mg NEB Q4H PRN PRN Reason: wheezing, cough, sob Albuterol/Ipratropium (Duoneb 3.0-0.5 Mg/3 Ml) 3 ml NEB TIDRT [facility] Last Admin: 10/10/16 15:05 Dose: 3 ml Diphenhydramine HCl (Benadryl) 25 mg PO DAILY [facility] Last Admin: 10/10/16 09:12 Dose: 25 mg Lisinopril (Prinivil) 5 mg PO DAILY [facility] Last Admin: 10/10/16 09:13 Dose: 5 mg Loperamide HCl (Imodium) 2 mg PO Q4H PRN PRN Reason: Diarrhea Lorazepam (Ativan) 0.5 mg PO Q8H PRN PRN Reason: Anxiety; restlessness Last Admin: 10/09/16 20:32 Dose: 0.5 mg Metoprolol Succinate (Toprol Xl) 25 mg PO DAILY [facility] Last Admin: 10/10/16 09:14 Dose: 25 mg Morphine Sulfate (Morphine) 2 mg IVPUSH Q4H PRN PRN Reason: sob; respiratory distress;pain Multivitamins/Minerals/Vitamin C (Tab-A-Noelle) tab PO DAILY [facility] Ranitidine Hcl [ Ranitidine] 150mg Own Med 150 mg PO BID [facility] Last Admin: 10/10/16 09:14 Dose: 150 mg Non-Formulary Medication (Rosuvastatin [Crestor]) 20 mg PO BEDTIME [facility] Ondansetron HCl (Zofran) 4 mg IV Q4H PRN PRN Reason: Nausea/Vomiting Potassium Chloride (Klor-Con 10) 20 meq PO DAILY [facility] Last Admin: 10/10/16 09:12 Dose: 20 meq Prednisone (Prednisone) 40 mg PO BID [facility] Last Admin: 10/10/16 08:36 Dose: 40 mg Sodium Chloride (Saline Flush) 10 ml FLUSH ASDIRECTED PRN PRN Reason: Keep Vein Open Last Admin: 10/09/16 02:48 Dose: 10 ml Tamsulosin HCl (Flomax) 0.4 mg PO DAILY [facility] Last Admin: 10/10/16 09:12 Dose: 0.4 mg Warfarin Sodium (Coumadin) 4 mg PO [email or web address] [facility] Last Admin: 10/10/16 15:53 Dose: 4 mg Warfarin Sodium (Coumadin) 2 mg PO [id number] [facility] Discontinued Medications Albuterol (Proventil Neb Soln) 2.5 mg NEB Q4H [facility] Last Admin: 10/09/16 15:15 Dose: 2.5 mg Albuterol/Ipratropium (Duoneb 3.0-0.5 Mg/3 Ml) 3 ml NEB ONETIME ONE Stop: 10/09/16 02:02 Last Admin: 10/09/16 02:11 Dose: 3 ml Albuterol/Ipratropium (Duoneb 3.0-0.5 Mg/3 Ml) 3 ml NEB TID [facility] Last Admin: 10/09/16 20:30 Dose: 3 ml Flunisolide (Nasalide Nasal [place]) ml FLORES BID [facility] Loratadine (Claritin) 10 mg PO DAILY PRN PRN Reason: Allergies Methylprednisolone Sodium Succinate (Solu-Medrol) 125 mg IVPUSH ONETIME ONE Stop: 10/09/16 02:27 Last Admin: 10/09/16 02:46 Dose: 125 mg Methylprednisolone Sodium Succinate (Solu-Medrol) 125 mg IVPUSH Q8H [facility] Last Admin: 10/09/16 03:53 Dose: Not Given Metoprolol Succinate (Toprol Xl) 50 mg PO DAILY [facility] Last Admin: 10/09/16 17:22 Dose: Not Given Metoprolol Succinate (Toprol Xl) 25 mg PO ONETIME ONE Stop: 04/09/17 16:10 Last Admin: 10/09/16 17:21 Dose: Not Given Potassium Chloride (Klor-Con 10) 20 meq PO BID [facility] Last Admin: 10/09/16 17:22 Dose: Not Given - Exam Quality Assessment: Reports: supplemental oxygen General: Reports: alert, oriented, cooperative, no acute distress HEENT: Reports: Pupils equal, Pupils reactive, Mucous membr. moist/pink. Denies : Scleral icterus Neck: Reports: supple, no JVD, no thyromegaly Lungs: Reports: Normal respiratory effort, Decreased breath sounds, Crackles. Denies: Wheezing Cardiovascular: Reports: Regular Rate, No Murmurs, Irregular Rhythm Abdomen: Reports: bowel sounds present, soft, no tenderness. Denies: CVA tenderness Back Exam: Reports: normal inspection, full range of motion. Denies: paraspinal tenderness, vertebral tenderness Extremities: Reports: no edema, no tenderness/swelling Skin: Reports: warm, dry, intact Neurological: Reports: no new focal deficit, strength equal bilateral Psy/Mental Status: Reports: normal affect, normal mood *Q Meaningful Use (DIS) - VTE *Q VTE Criteria *Q: - Stroke *Q Stroke Criteria *Q: - AMI *Q AMI Criteria *Q:
[2016-10-11] MEDS ORDERED: WARFARIN 2 MG PO SCH (16:00)
== END 2016-10-10 17:30 ==
LOC: FB.ED 01:28 → FB.MS 03:29
PROVIDERS: ADMIT Emergency Medicine; ATTEND Family Medicine
DX: J45.901 Unspecified asthma with (acute) exacerbation (principal); R91.8 Other nonspecific abnormal finding of lung field; R06.00 Dyspnea, unspecified; I10 Essential (primary) hypertension; E78.00 Pure hypercholesterolemia, unspecified; J45.909 Unspecified asthma, uncomplicated; K21.9 Gastro-esophageal reflux disease without esophagitis; Z88.8 Allergy status to other drugs, medicaments and biological substances; Z79.01 Long term (current) use of anticoagulants; Z79.899 Other long term (current) drug therapy; Z87.891 Personal history of nicotine dependence
CPT/HCPCS: 36415; 71020; 80048; 83880; 84484; 85025; 85610; 94640; 96374; 97161; 97165; 99285; A9270; G0378; J2930; J7050; J7620